=== PATIENT | female | born 1975 | race Caucasian/White ===

== ENCOUNTER 2019-07-21 08:43 | Emergency (ER) | payer SELFPAY ==
--- NOTE | ~2019-07-21 | XR_ITS ---
EXAMINATION: XR chest 2V 07/21/2019 09:22 INDICATION: Pain, anxiety and shortness of breath PROCEDURE: 2 view chest COMPARISON: No prior studies for comparison. FINDINGS: The lungs are clear. The cardiomediastinal silhouette is within normal limits. There are no pleural effusions. There is no pneumothorax suspected. There is a screw transfixing the left cla vicle. IMPRESSION: 1: NO ACUTE CARDIOPULMONARY DISEASE. Reviewed, dictated and finalized at location A.
[2019-07-21 08:41] VITALS: BP 169/100; PULSE 127; RESP 19; TEMP 36.5; O2SAT 100
[2019-07-21] MEDS: LORAZEPAM INJ 2 MG/ML VIAL 0.5 MG IV PUSH (08:56)
[2019-07-21 09:08] LABS: Basophils Absolute Auto 0.1 K/mm3 (0.0-0.1); Basophils Percent Auto 0.6 % (0.2-1.2); Eosinophils Absolute Auto 0.1 K/mm3 (0-0.3); Eosinophils Percent Auto 0.8 % (0-4.4); Hematocrit 36.2 % (37.0-47.0); Hemoglobin 12.2 g/dL (12.0-15.0); Immature Granulocyte Absolute 0.03 K/mm3 (0.00-0.031); Immature Granulocyte Percent A 0.3 % (0-0.5); Lymphocytes Absolute Auto 2.05 K/mm3 (0.9-3.2); Lymphocytes Percent Auto 19.1 % (18.3-44.2); Mean Corpuscular HGB Conc 33.7 g/dl (32-36); Mean Corpuscular Hemoglobin 27.4 pg (26-34); Mean Corpuscular Volume 81.3 fl (80-100); Mean Platelet Volume 9.1 fl (7.4-10.4); Monocytes Absolute Auto 0.8 K/mm3 (0.1-0.6); Monocytes Percent Auto 7.8 % (2.6-8.5); Neutrophils Absolute Auto 7.7 K/mm3 (1.3-6.7); Neutrophils Percent Auto 71.4 % (45.5-73.1); Platelet Count Result 419 k/mm3 (150-375); Red Blood Count 4.45 M/mm3 (4.2-5.4); Red Cell Distribution Width 13.2 % (11.5-14.5); White Blood Count 10.7 K/mm3 (4.5-10.0)
[2019-07-21 09:17] LABS: Prothrombin Time 13.3 Seconds (11.1-14.7)
[2019-07-21 09:19] LABS: Blood Urea Nitrogen 10 mg/dL (7-17); Calcium 9.6 mg/dL (8.4-10.2); Carbon Dioxide 18 mmol/L (22-30); Chloride 101 mmol/L (98-107); Estimated Glomerular Filt Rate > 60; Glucose 120 mg/dL (65-105); Potassium 3.6 mmol/L (3.4-5.0); Sodium 133 mmol/L (137-145)
--- NOTE | 2019-07-21 09:22 | ED.GENADULT ---
HPI - General Adult General Chief complaint: Anxiety Stated complaint: ANXIETY/SOB Time Seen by Provider: 07/21/19 08:44 History of Present Illness HPI narrative: Patient is a 43-year-old female who presents the ER with chest pain and nervousness. Patient was using methamphetamine last night and started developing the chest discomfort today when her significant other was using air freshener sanitizing spray on door handles and occasionally spraining it at her. She can still see the ozone welder repair spray floating in front of her. No thoughts of self-harm or harm towards others. No history of coronary disease. Chest pain-free at this time. Related Data Home Medications Medication Instructions Recorded Confirmed No Home Medications 07/21/19 07/21/19 Allergies Allergy/AdvReac Type Severity Reaction Status Date / Time No Known Allergies Allergy Unknown Verified 07/21/19 08:47 Review of Systems Review of Systems: All systems reviewed & are unremarkable except as noted in HPI and below Constitutional: Constitutional: Denies chills, Denies fever(s) and Denies weakness ENT: Denies nasal congestion and Denies sore throat Cardiovascular: Cardiovascular: Reports chest pain and Denies radiating jaw, neck or arm pain Respiratory: Respiratory: Denies cough, Reports dyspnea and Denies wheezing Gastrointestinal: Gastrointestinal: Denies abdominal pain, Denies nausea and Denies vomiting Neurologic: Denies focal weakness and Denies numbness Psychiatric: Psychiatric: Reports anxiety, Denies homicidal ideation and Denies suicidal ideation [facility] Past Medical History Medical History (Updated 07/21/19 @ 13:27 by Ronald Sam MD) Patient denies significant medical history Surgical History Surgical History (Updated 07/21/19 @ 09:25 by Ronald Sam MD) No significant past surgical history Social History Social History (Updated 07/21/19 @ 09:25 by Ronald Sam MD) Substance use: current Substance use type: amphetamines Exam Narrative: Exam Narrative: GENERAL: Anxious-appearing, obese, and in no acute distress. HEAD: Normocephalic, atraumatic. ENT: Mucous membranes moist. CHEST: Clear to auscultation. No respiratory distress. HEART: Tachycardic and regular. Normal peripheral pulses. ABDOMEN: Soft, nontender, nondistended, normal active bowel sounds. EXTREMITIES: Normal range of motion. No edema. SKIN: Warm, dry, no rash. NEURO: Alert and oriented x3. PSYCH: Anxious, reports seeing air sanitizing spray floating infront of her.. Course Vital Signs Vital signs: Vital Signs Temperature 97.7 F 07/21/19 08:41 Pulse Rate 127 H 07/21/19 08:41 Respiratory Rate 19 07/21/19 08:41 Blood Pressure 169/100 H 07/21/19 08:41 Pulse Oximetry 100 07/21/19 08:41 Temperature 97.7 F 07/21/19 08:41 Pulse Rate 115 H 07/21/19 11:28 Respiratory Rate 16 07/21/19 11:28 Blood Pressure 143/95 H 07/21/19 11:28 Pulse Oximetry 100 07/21/19 11:28 Medical Decision Making MDM Narrative Medical decision making narrative: Patient resting much more comfortably. Still slightly tachycardic. Troponins negative x2. Received ativan. D/c home. Vital Signs Vital Signs: Vital Signs Temperature 97.7 F 07/21/19 08:41 Pulse Rate 127 H 07/21/19 08:41 Respiratory Rate 19 07/21/19 08:41 Blood Pressure 169/100 H 07/21/19 08:41 Pulse Oximetry 100 07/21/19 08:41 Temperature 97.7 F 07/21/19 08:41 Pulse Rate 115 H 07/21/19 11:28 Respiratory Rate 16 07/21/19 11:28 Blood Pressure 143/95 H 07/21/19 11:28 Pulse Oximetry 100 07/21/19 11:28 Lab Data Result diagrams: 07/21/19 09:02 07/21/19 09:02 Labs: Lab Results 07/21/19 07/21/19 07/21/19 Range/Units 09:02 09:02 09:02 WBC 10.7 H (4.5-10.0) K/mm3 RBC 4.45 (4.2-5.4) M/mm3 Hgb 12.2 (12.0-15.0) g/dL Hct 36.2 L (37.0-47.0) % MCV 81.3 (80-100) fl MCH 27.4
[2019-07-21 09:23] LABS: Add Urine Microscopic? YES; Appearance Urine Cloudy (Clear); Bacteria Urine 3+ /hpf; Bilirubin Urine Negative (Negative); Blood Urine Negative (Negative); Color Urine Yellow (Yellow); Glucose Urine UA Negative (Negative); Ketones Urine Trace mg/dL (Negative); Leukocyte Esterase Ur Negative LEU/UL (Negative); Mucus Urine Rare /lpf; Nitrate Urine Negative (Negative); Protein Urine 1+ mg/dL (Negative); RBC Urine 0-2 /hpf (0-2); Squamous Epithelial Cell Urine Many /hpf (Few); Urobilinogen Urine Negative mg/dL (<2.0)
[2019-07-21] MEDS: SODIUM CHLORIDE 0.9% IV 1,000 ML 999 ML IV CONT (09:29)
[2019-07-21 09:30] LABS: Troponin I < 0.012 ng/mL (0.000-0.034)
[2019-07-21 09:32] VITALS: BP 150/102; PULSE 96; RESP 16; O2SAT 100
[2019-07-21 11:28] VITALS: BP 143/95; PULSE 115; RESP 16; O2SAT 100
[2019-07-21 12:24] LABS: Troponin I < 0.012 ng/mL (0.000-0.034)
[2019-07-21 13:35] VITALS: BP 149/98; PULSE 110; RESP 21; O2SAT 96
== END 2019-07-21 13:36 | disposition home or self-care (01) ==
PROVIDERS: Emergency Provider Emergency Medicine
DX: F15.10 Other stimulant abuse, uncomplicated (principal); R07.89 Other chest pain
CPT/HCPCS: 36415; 71046; 80048; 81001; 84484; 85025; 85610; 85730; 96361; 96374; 99284; J2060; J7030

== ENCOUNTER 2021-06-22 02:56 | Emergency (ER) | payer SELFPAY ==
[2021-06-22 02:57] VITALS: BP 171/98; PULSE 124; RESP 18; TEMP 36.7; O2SAT 100
--- NOTE | 2021-06-22 03:05 | ED.DENTAL ---
HPI - Dental/Oral General Chief complaint: Dental/Oral Stated complaint: dental abscess Time Seen by Provider: 06/22/21 03:01 Source: patient Mode of arrival: ambulatory Limitations: no limitations History of Present Illness HPI Narrative: This is a 45 year old female who presents for evaluation dental abscess. She states her crown fell off her right upper teeth 1 week ago. She has been having upper dental pain intermittently. Today she developed right gum and facial swelling with pain. She denies drainage, nausea, vomiting or fever. She has not take anything for pain. Related Data Allergies Allergy/AdvReac Type Severity Reaction Status Date / Time No Known Allergies Allergy Unknown Verified 06/22/21 02:59 Review of Systems Review of Systems: All systems reviewed & are unremarkable except as noted in HPI and below PMFSH Past Medical History Medical History (Updated 06/22/21 @ 05:06 by Josette Thibodeaux MD) Patient denies significant medical history Surgical History Surgical History (Updated 07/21/19 @ 09:25 by Ronald Sam MD) No significant past surgical history Social History Social History (Updated 07/21/19 @ 09:25 by Ronald Sam MD) Substance use: current Substance use type: amphetamines Exam Const: General: no acute distress and alert Orientation/consciousness: patient oriented x3 HENMT: Mouth: Yes lip normal, Yes tongue normal, Yes oropharynx normal and Yes moist mucous membranes Teeth and gingiva: poor dentition Throat: posterior oropharynx normal, tonsils normal and uvula midline Other: right cheek induration and swelling, no fluctuance Eyes: EOM: EOMs intact bilaterally Resp: Effort & Inspection: normal respiratory effort and no retractions Auscultation: clear to auscultation bilaterally Cardio: Rate: tachycardic Rhythm: regular rhythm Heart sounds: no murmurs Skin: General skin exam: normal color Rashes: no rashes Neuro: General: patient oriented x3, moves all extremities and CN's II-XI intact bilaterally Psych: Mental Status: mental status grossly normal Affect: normal affect Course Reevaluation(s) Reevaluation #1: Patient was given dose of antibiotics in ER and she will continue antibiotics. I do not believe she has abscess to drainage at this point. I discussed discharge plan. She reports pain has improved after toradol. Date: 04/06/22 Time: 05:03 Vital Signs Vital signs: Vital Signs Temperature 98.0 F 06/22/21 02:57 Pulse Rate 124 H 06/22/21 02:57 Respiratory Rate 18 06/22/21 02:57 Blood Pressure 171/98 H 06/22/21 02:57 Pulse Oximetry 100 06/22/21 02:57 Temperature 98.0 F 06/22/21 02:57 Pulse Rate 100 06/22/21 05:19 Respiratory Rate 16 06/22/21 05:19 Blood Pressure 151/95 H 06/22/21 05:19 Pulse Oximetry 100 06/22/21 05:19 MDM - Dental/Oral Differential Diagnosis Differential diagnosis: Likely toothache, dental abscess and fracture of tooth Discharge Plan Discharge Clinical Impression: Dental abscess Patient Disposition: Home, Self-Care Condition: Stable Instructions: Antibiotic Form, Dental Abscess (ED) Additional Instructions: Take antibiotics as prescribed. You will need to see a dentist. You can try [facility] with Dr. Mason Moura. Call [phone] Prescriptions: New clindamycin HCl 150 mg capsule 450 mg PO Q8H 10 Days Qty: 90 RF: 0 ibuprofen 600 mg tablet 600 mg PO Q6H PRN (Reason: pain) Qty: 14 RF: 0 Follow-up/Referrals: Stephenie Brewer DO [Physician] - PHYSICIAN,CLINICAL RESEARCH ASSISTANT [Primary Care Provider] - Stand Alone Forms: Work/School Release IP
[2021-06-22] MEDS: KETOROLAC 30 MG/ML VIAL (*BKC) IV PUSH (03:25)
[2021-06-22] MEDS: CLINDAMYCIN 900 MG/D5W 50 ML 900 MG/50 ML PIGGYBACK 50 MG IVPB (03:48)
[2021-06-22 05:19] VITALS: BP 151/95; PULSE 100; RESP 16; O2SAT 100
== END 2021-06-22 05:36 | disposition home or self-care (01) ==
PROVIDERS: Emergency Provider General Practice
DX: K04.7 Periapical abscess without sinus (principal)
CPT/HCPCS: 96365; 96375; 99284; J1885